=== PATIENT | female | born 1935 | race Caucasian/White ===

== ENCOUNTER → 2017-02-17 | Emergency (ER) | payer OTHER ==
[~2017-02-17] VITALS: Ht 167.6 cm; Wt 64.0 kg
[~2017-02-17] MED LIST: ATARAX25 MG PO; ATORVASTATIN CA20 MG; CORTIZONE-1028 GM TOP; DUI500 PO; ENALAPRIL MALEA10 MG; ENALAPRIL MALEA25 GM; GLYBURIDE5 MG; MUPIROCIN22 GM TOP; VASOTEC2.5 MG; ZYRTEC10 M3 PO
== END | disposition left against medical advice (07) ==
LOC: ER 12:33
DX: Z53.20 Procedure and treatment not carried out because of patient's decision for unspecified reasons (principal)

== ENCOUNTER 2017-03-13 11:40 | Outpatient (CLI) | payer OTHER | END 2017-03-13 11:52 | disposition home or self-care (01) | LOC: LAB 11:40 | DX: E78.5 Hyperlipidemia, unspecified (principal); E03.8 Other specified hypothyroidism; B89 Unspecified parasitic disease ==

== ENCOUNTER → 2017-03-15 | Outpatient (CLI) | payer OTHER | END | disposition home or self-care (01) | LOC: LAB 13:33 | DX: E78.4 Other hyperlipidemia (principal); E03.8 Other specified hypothyroidism; B88.8 Other specified infestations; Z12.11 Encounter for screening for malignant neoplasm of colon ==

== ENCOUNTER → 2017-05-31 | Outpatient (CLI) | payer OTHER | END | disposition home or self-care (01) | LOC: NUCLEAR 05-10 14:00 | DX: M81.0 Age-related osteoporosis without current pathological fracture (principal); M45.9 Ankylosing spondylitis of unspecified sites in spine ==

== ENCOUNTER 2017-11-27 11:57 | Outpatient (CLI) | payer OTHER | END 2017-11-27 15:00 | disposition home or self-care (01) | LOC: LAB 11:57 | DX: I10 Essential (primary) hypertension (principal); E11.9 Type 2 diabetes mellitus without complications; E03.8 Other specified hypothyroidism; E78.2 Mixed hyperlipidemia ==

== ENCOUNTER 2017-12-01 11:45 | Outpatient (CLI) | payer OTHER | END 2017-12-01 15:00 | disposition home or self-care (01) | LOC: LAB 11:45 | DX: N39.0 Urinary tract infection, site not specified (principal); R82.79 Other abnormal findings on microbiological examination of urine; M12.88 Other specific arthropathies, not elsewhere classified, other specified site; M19.90 Unspecified osteoarthritis, unspecified site ==

== ENCOUNTER → 2018-01-23 16:06 | Outpatient (CLI) | payer OTHER | END | disposition home or self-care (01) | LOC: LAB 16:06 | DX: N39.0 Urinary tract infection, site not specified (principal); R82.79 Other abnormal findings on microbiological examination of urine ==

== ENCOUNTER 2018-02-04 12:42 | Outpatient (CLI) | payer OTHER | END 2018-02-04 14:12 | disposition home or self-care (01) | LOC: MRI 12:42 | DX: M25.561 Pain in right knee (principal) | CPT/HCPCS: 73718 ==

== ENCOUNTER 2018-03-06 13:51 | Outpatient (CLI) | payer OTHER | END 2018-03-06 13:55 | disposition home or self-care (01) | LOC: SONOGRAMA 13:51 | DX: M25.572 Pain in left ankle and joints of left foot (principal); S93.432A Sprain of tibiofibular ligament of left ankle, initial encounter ==

== ENCOUNTER 2018-03-14 12:30 | Outpatient (CLI) | payer OTHER | END 2018-03-14 12:37 | disposition home or self-care (01) | LOC: LAB 12:30 | DX: N39.0 Urinary tract infection, site not specified (principal) ==

== ENCOUNTER → 2018-11-14 | Outpatient (CLI) | payer OTHER | END | disposition home or self-care (01) | LOC: RAD 15:45 | DX: M54.5 Low back pain (principal); M16.11 Unilateral primary osteoarthritis, right hip ==

== ENCOUNTER 2019-01-27 13:38 | Outpatient (CLI) | payer OTHER | END 2019-01-27 13:42 | disposition home or self-care (01) | LOC: RAD 13:38 | DX: M17.11 Unilateral primary osteoarthritis, right knee (principal) ==

== ENCOUNTER 2021-09-29 14:30 | Outpatient (CLI) | payer OTHER | END 2021-09-29 14:39 | disposition home or self-care (01) | LOC: RAD 14:30 | PROVIDERS: ATTEND Internal Medicine Cardiovascular Disease | DX: M12.9 Arthropathy, unspecified (principal) ==

== ENCOUNTER 2022-06-21 12:40 | Outpatient (CLI) | payer OTHER | END 2022-06-21 12:50 | disposition home or self-care (01) | LOC: LAB 12:40 | PROVIDERS: ATTEND Internal Medicine Cardiovascular Disease | DX: E11.9 Type 2 diabetes mellitus without complications (principal); E03.9 Hypothyroidism, unspecified; E78.2 Mixed hyperlipidemia; Z12.11 Encounter for screening for malignant neoplasm of colon ==

== ENCOUNTER 2023-04-28 14:32 | Outpatient (CLI) | payer OTHER ==
[2023-04-28 15:16] LABS: HEMATOCRIT 39.8 % (36.0-45.00); HEMOGLOBIN 13.6 g/dL (12.0-15.00); MEAN CELL VOLUME 84.8 fL (80.00-100.00); MEAN CORPUSCULAR HEMOGLOBIN 28.9 pg (27.00-32.0); MEAN CORPUSCULAR HGB CONC 34.1 g/dl (32.0-36.0); PLATELET COUNT 246 K/uL (150-450); RED CELL DISTRIBUTION WIDTH 13.2 % (11.5-14.5)
[2023-04-28 15:19] LABS: URINE APPEARANCE Clear; URINE BILIRRUBIN Negative (NEGATIVE); URINE BLOOD Negative; URINE COLOR Yellow; URINE GLUCOSE Negative (NEGATIVE); URINE LEUKOCYTE Negative; URINE NITRATE Negative; URINE PROTEIN Negative (NEGATIVE); URINE UROBILINOGEN 0.2 E.U./dl
[2023-04-28 15:22] LABS: URINE BACTERIA 45.3 uL (0.0-1933); URINE EPITHELIAL CELLS 2.9 uL (0.0-38.8); URINE RBC 9.3 uL (0.0-20.8); URINE WBC 4.3 uL (0.0-23.2)
[2023-04-28 15:54] LABS: BILIRUBIN TOTAL 0.65 mg/dL (0.3-1.2); CALCIUM 9.3 mg/dL (8.5-10.1); CREATININE SERUM 1.12 mg/dL (0.55-1.02); GFR 45.91; POTASSIUM 4.11 mEq/L (3.5-5.1); T4 TOTAL 9.75 UG/DL (4.8-13.9); TSH 3.73 uIU/mL (0.358-3.74)
== END 2023-04-28 14:33 | disposition home or self-care (01) ==
LOC: LAB 14:32
PROVIDERS: ATTEND Internal Medicine Cardiovascular Disease
DX: I10 Essential (primary) hypertension (principal); E11.9 Type 2 diabetes mellitus without complications; E03.9 Hypothyroidism, unspecified; E78.2 Mixed hyperlipidemia; Z12.11 Encounter for screening for malignant neoplasm of colon